=== PATIENT | female | born 1970 | race African-American/Black ===

== ENCOUNTER 2016-08-15 10:40 | Emergency (ER) | payer BC ==
[~2016-08-15] VITALS: Ht 170.2 cm; Wt 68.5 kg
[2016-08-15 10:44] VITALS: BP 109/74
[2016-08-15] MEDS ORDERED: NKM (10:48)
[2016-08-15] MEDS ORDERED: IBUPROFEN600 MG ORAL (11:13)
[2016-08-15] MEDS ORDERED: BACTRIM DS TAB1 EAC1 ORAL (11:13)
[2016-08-15] MEDS ORDERED: KEFLEX500 MG ORAL (11:13)
--- NOTE | 2016-08-15 11:16 | Emergency Room Report ---
History of Present Illness General Chief Complaint: Skin Rash/Abscess Source: Patient Present Illness HPI Patient presents with complaints of pain to the left axilla She reports that 2 weeks ago she had noticed a small [place] She squeezed the area and there was some discharge Since then the area had enlarged [place] more uncomfortable on touch Denies any fevers or chills Denies any chest pain or shortness of breath pain is 6/10 Allergies: Coded Allergies: No Known Allergies (Unverified , 08/15/16) Patient History Past Medical History: see triage record Pertinent Family History: none Last Menstrual Period: on period Reviewed Nursing Documentation: PMH: Agreed, PSxH: Agreed Nursing Documentation-PMH Past Medical History: No Stated History Review of Systems All Other Systems: negative except mentioned in HPI Physical Exam Vital Signs Date Time Temp Pulse Resp B/P Pulse Ox O2 Delivery O2 Flow Rate FiO2 08/15/16 10:44 98.8 92 16 109/74 98 Room Air Sp02 EP Interpretation: reviewed, normal General Appearance: well appearing, no apparent distress Head: normocephalic, atraumatic Eyes: bilateral eye EOMI, bilateral eye PERRL ENT: hearing grossly normal, normal pharynx, TMs + canals normal, uvula midline Neck: supple Respiratory: lungs clear, normal breath sounds Musculoskeletal: normal inspection Neurologic: alert, oriented x3 Skin: other - Small approximately 1 x 1 cm fluctuance palpable left axilla, does not appear to be lymph node in nature, no obvious streaking, no other lymphadenopathy Lymphatic: no adenopathy Medical Decision Making Diagnostic Impression: Primary Impression: abscess ER Course Given the appearance and exam of this area appears to be in line with likely early developing abscess patient will be initially attempted on oral antibiotics I did not feel that laceration the area for incision and drainage was appropriate given the appearance and palpation of the area The patient will have close outpatient followup if the area appears to be worsening or increased discomfort over the next 2-3 days patient will return for more emergent incision and drainage Last Vital Signs Date Time Temp Pulse Resp B/P Pulse Ox O2 Delivery O2 Flow Rate FiO2 08/15/16 10:44 98.8 92 16 109/74 98 Room Air Status: improved Disposition: HOME, SELF-CARE Condition: Stable Scripts Ibuprofen* (MOTRIN*) 600 Mg Tablet 600 MG ORAL Q8H Y for For Pain, #20 TAB 0 Refills Prov: CARLOS CLARK D.O. 08/15/16 Trimethoprim/Sulfamethoxazole 160/800* (BACTRIM DS TABLET*) 1 Each Tablet 1 TAB ORAL Q12H, #20 TAB 0 Refills Prov: CARLOS CLARK D.O. 08/15/16 Cephalexin* (KEFLEX*) 500 Mg Capsule 500 MG ORAL Q6H, #40 CAP 0 Refills Prov: CARLOS CLARK D.O. 08/15/16 Referrals: [facility],REFERRING (PCP) Patient Instructions: Abscess Additional Instructions: Patient is provided with the discharge instructions notified to follow up with primary doctor in the next 2-3 days otherwise return to the er with any worsening symptoms. Please note that this report is being documented using [employer] technology. This can lead to erroneous entry secondary to incorrect interpretation by the dictating instrument. CARLOS CLARK D.O. Aug 15, 2016 11:16
[2016-08-15 11:36] VITALS: BP 110/72
== END 2016-08-15 11:21 | disposition home or self-care (01) ==
LOC: EMR 10:55
DX: L02.412 Cutaneous abscess of left axilla (principal)
CPT/HCPCS: 99284

== ENCOUNTER 2016-08-18 19:34 | Emergency (ER) | payer BC ==
[~2016-08-18] VITALS: Ht 170.2 cm; Wt 68.5 kg
[~2016-08-18 19:34] MED LIST: BACTRIM DS TAB1 EAC1 ORAL; IBUPROFEN600 MG ORAL; KEFLEX500 MG ORAL; NKM
[2016-08-18] MEDS ORDERED: Oxycodone/Acetaminophen 5-325 ORAL ONE (20:15)
--- NOTE | 2016-08-18 21:44 | Emergency Room Report ---
History of Present Illness General Chief Complaint: Skin Rash/Abscess Source: Patient Present Illness HPI Patient seen 3 days ago and treated for armpit infection. Taking antibiotics. The area has swollen and there is increased pain. Pain now 10/10, sharp and burning pressure. Some radiation to arm. No numbness. Skin is warm. This began as a small cyst many years ago, but recently began to swell and become tender. No fevers, NVD, dysuria. Not . No URI complaints. Not diabetic. Last mammogram was normal. 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 Period: 08/14/16 Now: No Nursing Documentation-[facility] Past Medical History: No Stated History Review of Systems All Other Systems: negative except mentioned in HPI Physical Exam Vital Signs Date Time Temp Pulse Resp B/P Pulse Ox O2 Delivery O2 Flow Rate FiO2 08/18/16 19:56 99.0 102 14 122/71 100 Room Air Sp02 EP Interpretation: reviewed, normal General Appearance: well appearing, no apparent distress Head: normocephalic, atraumatic Eyes: bilateral eye PERRL, bilateral eye normal inspection ENT: hearing grossly normal, normal voice, moist mucus membranes Neck: full range of motion, supple Respiratory: lungs clear, no respiratory distress, speaking full sentences Cardiovascular #1: regular rate, rhythm Cardiovascular #2: 2+ radial (L) Gastrointestinal: normal inspection Musculoskeletal: back normal, digits/nails normal, gait/station normal, normal range of motion, inflammation - L axilla, swelling Neurologic: alert, normal gait, grossly normal Psychiatric: mood/affect normal Skin: other - axillary swelling L - fluctuance with surrounding induration Lymphatic: axilla node tender (L) - hard to tell if more node or infection Procedures Incision and Drainage Incision and Drainage : Consent: Verbal Site: L axilla Blade Size: 11 I & D Procedure: betadine prep, sterile drapes applied, sterile dressing applied, gauze wick placed Wound Location: axilla Wound's Depth, Shape: other - into deep subcutaneous tissue Wound Explored: copious amounts of pus and caseous material expressed and removed Irrigated w/ Saline (ccs): 20 Anesthesia: Lidocaine w/ Epi Splint Applied?: No Sling Applied?: No Patient Tolerated: Well Complications: None Medical Decision Making Diagnostic Impression: Primary Impression: Axillary abscess ER Course Abscess L axilla worsening on Abx. Needs I and D. I and D performed and tolerated well. Packed. Needs drain replacement. Caseous material suggests originally sebaceous cyst which has become infected. Improved. Discussed possible future need for removal of sebaceous cyst. Patient stable for outpatient observation and treatment. Last Vital Signs Date Time Temp Pulse Resp B/P Pulse Ox O2 Delivery O2 Flow Rate FiO2 08/18/16 22:14 98.0 100 16 121/74 99 Room Air Status: improved Disposition: HOME, SELF-CARE Condition: Improved Scripts Tramadol Hcl* (ULTRAM*) 50 Mg Tablet 50 MG ORAL Q6H Y for For Pain, #10 TAB 0 Refills Prov: Rafiq Rios M.D. 08/18/16 Referrals: [facility],REFERRING (PCP) Rafiq Rios M.D. Aug 18, 2016 21:44
[2016-08-18] MEDS ORDERED: TRAMADOL HCL50 MG ORAL (21:48)
[2016-08-18 22:14] VITALS: BP 121/74
== END 2016-08-18 22:17 | disposition home or self-care (01) ==
LOC: EMR 20:31
DX: L02.412 Cutaneous abscess of left axilla (principal)
CPT/HCPCS: 10060

== ENCOUNTER 2016-08-20 11:55 | Emergency (ER) | payer BC ==
[~2016-08-20] VITALS: Ht 170.2 cm; Wt 68.5 kg
[~2016-08-20 11:55] MED LIST changes: +TRAMADOL HCL50 MG ORAL
[2016-08-20 11:58] VITALS: BP 115/78
[2016-08-20 12:36] VITALS: BP 112/72
--- NOTE | 2016-08-20 12:43 | Emergency Room Report ---
History of Present Illness General Chief Complaint: Wound Recheck/Suture Removal Source: Patient Present Illness HPI The patient is a 45-year-old female presenting for wound recheck and packing removal after abscess incision and drainage 2 days prior. The patient states pain is a 6/10 dull ache to the area and is worse with touch. Pain does not radiate. Patient does admit to a slight discharge from the area. The patient denies any fever or chills. The patient states she has been taking antibiotics as directed. The patient denies any other symptoms including N, V, numbness/ tingling, SOB Allergies: Coded Allergies: No Known Allergies (Unverified , 08/15/16) Patient History Past Medical History: see triage record Pertinent Family History: none Last Menstrual Period: last week Now: No Reviewed Nursing Documentation: PMH: Agreed, PSxH: Agreed Nursing Documentation-PMH Past Medical History: No Stated History Review of Systems All Other Systems: negative except mentioned in HPI Physical Exam Vital Signs Date Time Temp Pulse Resp B/P Pulse Ox O2 Delivery O2 Flow Rate FiO2 08/20/16 11:58 98.1 102 18 115/78 97 Room Air Sp02 EP Interpretation: reviewed, normal General Appearance: no apparent distress, alert, GCS 15, non-toxic Head: normocephalic, atraumatic Eyes: bilateral eye PERRL, bilateral eye normal inspection ENT: hearing grossly normal, normal pharynx, no angioedema, normal voice Musculoskeletal: back normal, normal range of motion, tender - TTP of L axilla Neurologic: alert, oriented x3, responsive, sensory intact Psychiatric: judgement/insight normal, memory normal, mood/affect normal, no suicidal/homicidal ideation Skin: normal color, no rash, well hydrated, other - L axillary packing in place Lymphatic: no adenopathy Medical Decision Making PA Attestation Dr. Hardin is my supervising physician. Patient management was discussed with my supervising physician Diagnostic Impression: Primary Impression: Encounter for wound re-check Additional Impression: Abscess ER Course The patient is a 45-year-old female presenting for wound recheck and packing removal Differential diagnosis considered: Wound infection, nonhealing wound, cellulitis , abscess Physical exam: Vitals within normal limits. Afebrile. No apparent distress Left axilla: Packing is in place. Minimal white to yellow discharge is noted. Tenderness to palpation. No bleeding. No surrounding erythema. Packing is removed without any difficulty. Abscess is copiously irrigated internally with NS The patient will continue to take the antibiotics as directed and will followup with PMD. No new packing is indicated at this time. ER precautions are given Last Vital Signs Date Time Temp Pulse Resp B/P Pulse Ox O2 Delivery O2 Flow Rate FiO2 08/20/16 12:36 98.1 88 18 112/72 97 Room Air Status: improved Disposition: HOME, SELF-CARE Condition: Improved Referrals: [facility],REFERRING (PCP) Patient Instructions: Abscess, Wound Check Additional Instructions: I discussed my findings with the patient. All questions and concerns have been answered. Treatment and medication compliance have been addressed. I advised the patient that they need to follow up with PMD in 3-5 days. Return to ED if symptoms worsen, new symptoms arise, or if needed for any reason. Patient verbalized understanding of discharge instructions. The patient will continue to keep the wound clean and dry. GIANNA VILLALTA Aug 20, 2016 12:43
== END 2016-08-20 12:35 | disposition home or self-care (01) ==
LOC: EMR 12:24
DX: L02.412 Cutaneous abscess of left axilla (principal); Z48.89 Encounter for other specified surgical aftercare
CPT/HCPCS: 99281